=== PATIENT | female | born 1940 | race Caucasian/White ===

== ENCOUNTER 2024-02-16 16:39 | Emergency (ER) | payer MEDICARE, OTHER, SELFPAY ==
[2024-02-16 16:40] VITALS: BP 166/91
[2024-02-16 17:31] VITALS: BP 153/77
--- NOTE | 2024-02-16 17:37 | ED.GENMED ---
History of Present Illness
General
Chief Complaint: Rectal Bleeding
Time Seen by Provider: 02/16/24 17:19
History of Present Illness
History of Present Illness:
83-year-old female with history of A-fib on warfarin presents to the emergency department for evaluation of rectal bleeding. She states it would seem to be dark red blood last night but today with bright red blood. Noted bleeding regardless of
bowel movements. She denies any lightheadedness or dizziness. Last INR was 2.2. No abdominal pain or vomiting.
Past History
Past History
ED Past Medical History: Arrthythmia (Atrial fibrillation), Asthma, CHF, HTN, Hypercholesterolemia, IDDM, Renal failure (Renal insufficiency), Hypothyroidism and Other (Gastric ulcers, post herpetic neuralgia)
ED Past Surgical History: Appendectomy, Cholecystectomy and Gynecological (Total hysterectomy)
Patient has exhibited threatening behavior?: No
Social History
Tobacco: Non-smoker
Alcohol: None
Drug: None
Personal:
Living: with family
Employment: Retired
Family History
Family History: Other (Noncontributory)
Review of Systems
Review of Systems
Allergies reviewed?: Yes
All Other Systems: ROS reviewed and negative except as documented in HPI and ROS
Phy Exam
Physical Exam
Physical Exam:
GEN: Well appearing, NAD, WDWN
HEENT: Oral mucosa moist, no scleral icterus
Cardiac: Regular rate
Lung: No respiratory distress, no tachypnea
Abdomen: Soft, nontender
Rectal: No obvious evidence for bleeding, no visible hemorrhoids, no fissures
MSK: No gross deformity or injuries
Skin: Good color, no pallor or jaundice, no rashes
Neuro: AO x3, moves all extremities freely
Psych: Calm, cooperative
Course
Orders/Labs/Results
Orders:
Orders
02/16/24 17:52
Complete Blood Count/With Diff Urgent
Comprehensive Metabolic Panel Urgent
Prothrombin Time Urgent
02/16/24 18:55
Urinalysis Reflex To Culture Urgent
Date Specimen was Collected: 02/16/24
Time Specimen was Collected: 18:53
Urine Microscopic Reflex Cult Urgent
Urine Culture Urgent
DAI Source: U
Specimen Description:
Date Specimen was Collected: 02/16/24
Time Specimen was Collected: 18:53
02/16/24 19:42
CT Abd/pel Without Iv Or Oral Urgent
Comment:
Reason For Exam: R flank pain
02/16/24 20:59
Miconazole Nitrate [Monistat 7 Vaginal Cream] See Dose Instructions VAG NOW STA
Abnormal Lab Results
02/16/24 02/16/24
17:52 18:55
RBC 3.97 L 10^6/uL
(4.20-5.40)
Hgb 11.6 L g/dL
(12.0-16.0)
Hct 35.5 L %
(37.0-47.0)
MCHC 32.7 L g/dL
(33.0-37.0)
RDW 16.9 H %
(11.5-14.5)
MPV 10.6 H fL
(7.4-10.4)
Abs Immat Gran (auto) 0.1 H 10^3/uL
(0-0.05)
Absolute Neuts (auto) 6.8 H 10^3/uL
(1.4-6.5)
Absolute Monos (auto) 0.7 H 10^3/uL
(0.1-0.6)
Immature Gran % 0.7 H %
(0-0.5)
Lymphocytes % 16.9 L %
(20.5-51.1)
PT 21.2 H Sec
(11.4-14.6)
BUN 26 H mg/dl
(7-17)
Creatinine 1.1 H mg/dL
(0.6-1.0)
Glucose 146 H mg/dl
(70-99)
Ur Occult Blood Reflex 4+ A
(Negative)
Leukocyte Esterase Rfl 2+ A
(Negative)
Urine RBC >100 A /HPF
(0-2)
Urine Albumin (Reflex) 1+ A
(Neg - Trace)
02/16/24 17:52
02/16/24 17:52
Vital Signs
Initial and Last Documented VS:
Initial Vital Signs
Temp Pulse Resp BP Pulse Ox
97.9 F 85 18 166/91 97
02/16/24 16:40 02/16/24 16:40 02/16/24 16:40 02/16/24 16:40 02/16/24 16:40
Last Documented Vital Signs
Temp Pulse Resp BP Pulse Ox
97.9 F 85 18 157/80 98
02/16/24 16:40 02/16/24 16:40 02/16/24 16:40 02/16/24 21:00 02/16/24 21:00
MDM/Problems Addressed
MDM/Problems Addressed:
After initial evaluation with negative rectal exam a follow-up pelvic exam was performed, this revealed significant vaginal skin excoriations with thick white discharge and scant bleeding.. The patient complained continually of right flank pain
thus was sent for CT which showed no evidence for intra-abdominal pathology. Ultimately bleeding is not likely rectal and although she is anticoagulated there is no evidence of active bleed other than minor vaginal excoriations we will treat with
topical miconazole as the oral fluconazole will cause significant medication interactions
*Critical Care Note
Total Time (30-74mins, 75-104mins- exclusive of procedures): Not Applicable
ED Attending Note
-
Portions of this chart may have been created with voice recognition software.� Occasional wrong word or��sound alike� substitutions may have occurred due to the inherent limitations of voice recognition software.
Discharge Plan
Departure
Patient Disposition: Home (Routine Discharge)
Date of Disposition: 02/16/24
Time of Disposition: 20:52
Patient with high blood pressure during this ER visit?: No
Discharge Problem:
Candidiasis of vagina
Instructions: Vaginal Yeast Infection, Adult ED
Prescriptions:
New
miconazole nitrate [Miconazole-7] 2 % cream
1 appful vaginal HS 7 Days Qty: 45 0RF
No Action
dofetilide 250 MCG capsule
125 mcg PO Q12H
allopurinol 100 MG tablet
100 mg PO BID
simvastatin 40 MG tablet
40 mg PO HS
doxazosin 2 MG tablet
2 mg PO BID
magnesium oxide 500 MG capsule
500 mg PO DAILY
furosemide 20 MG tablet
40 mg PO BID@0800,1600
insulin asp prt-insulin aspart [Novolog Mix 70-30FlexPen U-100] 300 UNITS/3 ML insulin pen
50 units SC BID
warfarin [Jantoven] 4 MG tablet
2 mg PO HS
insulin asp prt-insulin aspart [Novolog Mix 70-30FlexPen U-100] 300 UNITS/3 ML insulin pen
25 units SC NOON
losartan 50 mg Tablet
50 mg PO DAILY
polyethylene glycol 3350 [Miralax] 17 gram Powder In Packet
17 g PO DAILYPRN PRN (Reason: constipation)
Theragen Tablet
1 tab PO DAILY
acetaminophen [Tylenol Extra Strength] 500 mg Tablet
1,000 mg PO Q6HPRN PRN (Reason: mild pain)
levothyroxine 75 mcg Tablet
75 mcg PO DAILY
gabapentin 100 mg Capsule
100 mg PO TIDPRN PRN (Reason: neuropathic pain)
albuterol sulfate 90 mcg/actuation Hfa Aerosol Inhaler
2 puff INHALATION R Q6HPRN PRN (Reason: sob)
Mounjaro 7.5 mg/0.5 mL Pen Injector
7.5 mg SC TH
Referrals:
Tonio Garduno PA-C [Family Provider] -
Interventions
Interventions:
*Risk Screen - Suicide Last Done: 02/16/24 16:40
*General Assessment Last Done: 02/16/24 16:40
*Neglect/Abuse Screening Last Done: 02/16/24 16:40
ED- Fall Risk Assessment Last Done: 02/16/24 22:00
*ED COVID-19 Vaccine History Last Done: 02/16/24 16:40
*Nursing Disposition Last Done: 02/16/24 22:00
XA-Hoznre-Aefjonhqyx Assessment Last Done: 02/16/24 17:55
ED- Cardiac Assessment Last Done: 02/16/24 17:55
ED- Pulmonary Assessment Last Done: 02/16/24 17:55
Discharge Date and Time
Discharge Date/Time: 02/16/24 22:01
Print Language: CITIZEN OF [place]
[2024-02-16 17:55] VITALS: BMI 41.6
[2024-02-16 18:00] VITALS: BP 138/62
[2024-02-16 18:02] LABS: % Basophils 0.4 % (0-2); % Eosinophils 2.1 % (0-6); % Immature Granulocytes 0.7 % (0-0.5); % Lymphocytes 16.9 % (20.5-51.1); % Monocytes 7.7 % (1.7-9.3); % Neutrophils 72.2 % (42.2-75.2); Absolute Eosinophils 0.2 10^3/uL (0-0.7); Absolute Immature Granulocytes 0.1 10^3/uL (0-0.05); Absolute Lymphocytes 1.6 10^3/uL (1.2-3.4); Absolute Monocytes 0.7 10^3/uL (0.1-0.6); Absolute Neutrophils 6.8 10^3/uL (1.4-6.5); Hematocrit 35.5 % (37.0-47.0); Hemoglobin 11.6 g/dL (12.0-16.0); Mean Corp Hgb Conc. 32.7 g/dL (33.0-37.0); Mean Corpuscular Hgb 29.2 pg (27.0-31.0); Mean Corpuscular Volume 89.4 fL (81.0-99.0); Mean Platelet Volume 10.6 fL (7.4-10.4); Nucleated Red Blood Cells % 0 %; Platelet Count 166 10^3/uL (130-400); Red Blood Cell Count 3.97 10^6/uL (4.20-5.40); Red Cell Dist. Width 16.9 % (11.5-14.5); White Blood Cell Count 9.5 10^3/uL (4.8-10.8)
[2024-02-16 18:09] LABS: INR 1.78; PT 21.2 Sec (11.4-14.6)
[2024-02-16 18:19] LABS: ALT (SGPT) 21 U/L (0-35); AST (SGOT) 28 U/L (14-36); Albumin 4.2 g/dl (3.5-5.0); Alkaline Phosphatase 64 U/L (38-126); Blood Urea Nitrogen 26 mg/dl (7-17); Calcium 9.5 mg/dl (8.4-10.2); Carbon Dioxide 25 mmol/L (22-30); Chloride 104 mmol/L (98-107); Estimated Creatinine Clearance 43 ml/min; Glucose 146 mg/dl (70-99); Potassium 3.8 mmol/L (3.5-5.1); Sodium 143 mmol/L (135-145); Total Bilirubin 0.6 mg/dl (0.2-1.3); Total Protein 6.7 g/dl (6.3-8.2); eGFR 49.55
[2024-02-16 19:25] LABS: Urine Albumin 1+ (Neg - Trace); Urine Bilirubin Negative (Negative); Urine Character Slightly Cloudy (Clear); Urine Color Red; Urine Glucose Negative (Negative); Urine Ketone Negative (Negative); Urine Leukocyte 2+ (Negative); Urine Nitrite Negative (Negative); Urine Occult Blood 4+ (Negative); Urine Specific Gravity 1.015 (<1.030); Urine Urobilinogen Negative (Neg - 1+)
[2024-02-16 19:51] LABS: Urine Red Blood Cell >100 /HPF (0-2)
[2024-02-16 20:17] VITALS: BP 176/94
[2024-02-16 21:00] VITALS: BP 157/80
[2024-02-16] MEDS: MONISTAT 7 VAGINAL CREAM 1 APPLIC VAG (21:12)
== END 2024-02-16 22:01 | disposition home or self-care (01) ==
LOC: EMR 16:39
PROVIDERS: Physician Assistant; EMERGENCY PHYSICIAN Student in an Organized Health Care Education/Training Program; FAMILY PHYSICIAN Physician Assistant Medical
DX: B37.31 Acute candidiasis of vulva and vagina (principal); I11.0 Hypertensive heart disease with heart failure; I50.9 Heart failure, unspecified; E03.9 Hypothyroidism, unspecified; E11.9 Type 2 diabetes mellitus without complications; E78.00 Pure hypercholesterolemia, unspecified; Z79.01 Long term (current) use of anticoagulants; Z87.11 Personal history of peptic ulcer disease; Z90.49 Acquired absence of other specified parts of digestive tract; Z79.4 Long term (current) use of insulin
CPT/HCPCS: 99284; 74176; 80053; 81003; 81015; 85025; 85610; 87086

== ENCOUNTER 2024-10-10 09:57 | Day surgery (SDC) | payer MEDICARE, OTHER, SELFPAY ==
[2024-10-10 12:17] LABS: INR 1.66; PT 20.1 Sec (11.4-14.6)
[2024-10-10 12:37] LABS: Glucose - Point of Care 125 mg/dl (70-99)
== END 2024-10-10 13:23 | disposition home or self-care (01) ==
LOC: CATH 09:57
PROVIDERS: ATTENDING PHYSICIAN Internal Medicine Cardiovascular Disease; REFERRING PHYSICIAN Student in an Organized Health Care Education/Training Program
DX: I48.19 Other persistent atrial fibrillation (principal); Z53.09 Procedure and treatment not carried out because of other contraindication; I11.0 Hypertensive heart disease with heart failure; I50.32 Chronic diastolic (congestive) heart failure; E03.9 Hypothyroidism, unspecified; E78.5 Hyperlipidemia, unspecified; E11.65 Type 2 diabetes mellitus with hyperglycemia; I25.10 Atherosclerotic heart disease of native coronary artery without angina pectoris; Z79.85 Long-term (current) use of injectable non-insulin antidiabetic drugs; Z79.01 Long term (current) use of anticoagulants; Z79.4 Long term (current) use of insulin
CPT/HCPCS: 85610; 82962

== ENCOUNTER → 2024-10-12 11:39 | Outpatient (REF) | payer MEDICARE, OTHER, SELFPAY ==
[2024-10-12 13:24] LABS: INR 2.01; PT 23.0 Sec (11.4-14.6)
== END ==
LOC: REG 11:39
PROVIDERS: ATTENDING PHYSICIAN Student in an Organized Health Care Education/Training Program; FAMILY PHYSICIAN Family Medicine
DX: I48.0 Paroxysmal atrial fibrillation (principal)
CPT/HCPCS: 36415; 85610

== ENCOUNTER → 2024-10-16 08:41 | Outpatient (REF) | payer MEDICARE, OTHER, SELFPAY ==
[2024-10-16 10:22] LABS: INR 2.08; PT 23.5 Sec (11.4-14.6)
== END ==
LOC: REG 08:41
PROVIDERS: ATTENDING PHYSICIAN Student in an Organized Health Care Education/Training Program; FAMILY PHYSICIAN Physician Assistant Medical
DX: I48.0 Paroxysmal atrial fibrillation (principal)
CPT/HCPCS: 36415; 85610

== ENCOUNTER → 2024-11-09 13:09 | Outpatient (REF) | payer MEDICARE, OTHER, SELFPAY | LOC: SDSPAT 13:09 | PROVIDERS: ATTENDING PHYSICIAN Internal Medicine Cardiovascular Disease; FAMILY PHYSICIAN Physician Assistant Medical; OTHER PHYSICIAN Student in an Organized Health Care Education/Training Program | DX: I48.19 Other persistent atrial fibrillation (principal) | CPT/HCPCS: 93005 ==

== ENCOUNTER 2024-11-14 06:33 | Day surgery (SDC) | payer MEDICARE, OTHER, SELFPAY ==
[2024-11-09 13:16] VITALS: BMI 38.7
[2024-11-14 07:56] LABS: Glucose - Point of Care 142 mg/dl (70-99)
[2024-11-14 08:04] LABS: INR 1.62; PT 19.8 Sec (11.4-14.6)
== END 2024-11-14 08:30 | disposition home or self-care (01) ==
LOC: CATH 06:33
PROVIDERS: ATTENDING PHYSICIAN Internal Medicine Cardiovascular Disease; FAMILY PHYSICIAN Physician Assistant Medical; OTHER PHYSICIAN Student in an Organized Health Care Education/Training Program
DX: I48.19 Other persistent atrial fibrillation (principal); Z53.09 Procedure and treatment not carried out because of other contraindication; I13.0 Hypertensive heart and chronic kidney disease with heart failure and stage 1 through stage 4 chronic kidney disease, or unspecified chronic kidney disease; E11.22 Type 2 diabetes mellitus with diabetic chronic kidney disease; I50.32 Chronic diastolic (congestive) heart failure; N18.30 Chronic kidney disease, stage 3 unspecified; I25.10 Atherosclerotic heart disease of native coronary artery without angina pectoris; E78.5 Hyperlipidemia, unspecified; J45.909 Unspecified asthma, uncomplicated; G47.33 Obstructive sleep apnea (adult) (pediatric); E03.9 Hypothyroidism, unspecified; E66.9 Obesity, unspecified; Z68.38 Body mass index [BMI] 38.0-38.9, adult; I87.2 Venous insufficiency (chronic) (peripheral); M10.9 Gout, unspecified; Z79.01 Long term (current) use of anticoagulants; Z79.4 Long term (current) use of insulin
CPT/HCPCS: 85610; 82962

== ENCOUNTER → 2024-12-05 06:31 | Day surgery (SDC) | payer MEDICARE, OTHER, SELFPAY ==
[2024-12-05 07:42] LABS: Glucose - Point of Care 171 mg/dl (70-99)
== END ==
LOC: CATH 06:31
PROVIDERS: ATTENDING PHYSICIAN Internal Medicine Cardiovascular Disease; FAMILY PHYSICIAN Physician Assistant Medical; OTHER PHYSICIAN Student in an Organized Health Care Education/Training Program
DX: I48.19 Other persistent atrial fibrillation (principal); Z53.09 Procedure and treatment not carried out because of other contraindication; E78.5 Hyperlipidemia, unspecified; I25.10 Atherosclerotic heart disease of native coronary artery without angina pectoris; I11.0 Hypertensive heart disease with heart failure; I50.32 Chronic diastolic (congestive) heart failure; E11.9 Type 2 diabetes mellitus without complications; Z79.4 Long term (current) use of insulin
CPT/HCPCS: 93005; 82962

== ENCOUNTER 2024-12-28 09:30 | Day surgery (SDC) | payer MEDICARE, OTHER, SELFPAY ==
--- NOTE | 2024-12-28 11:05 | ITS.CL.CARDI ---
Animal Nurse - Cardioversion
Cardioversion
Procedure Report:
Date of Procedure: 12/28/24
Procedure: Cardioversion.
Indication: Symptomatic persistent atrial fibrillation.
Performing Physician: Roselia Johnson MD
Technique: The patient was brought to the holding area. Signed informed consent was obtained. A time out was called and performed. The patient was sedated by a member of the anesthesia service. Anticoagulation status was reviewed and was
appropriate. R-2 pads were placed anteriorly and posteriorly. A 200 J followed by 300J synchronized biphasic shock restored normal sinus rhythm without significant bradycardia. There were no complications.
Conclusion: Uncomplicated cardioversion from atrial fibrillation to sinus rhythm.
Recommendation: Routine post cardioversion care. Continue terminal press operator anticoagulation.
cc: Hugh
== END 2024-12-28 11:15 | disposition home or self-care (01) ==
LOC: CATH 09:30
PROVIDERS: ATTENDING PHYSICIAN Internal Medicine Cardiovascular Disease; FAMILY PHYSICIAN Physician Assistant Medical; OTHER PHYSICIAN Student in an Organized Health Care Education/Training Program
DX: I48.19 Other persistent atrial fibrillation (principal)
CPT/HCPCS: 92960; 93005

== ENCOUNTER → 2025-01-17 12:49 | Outpatient (REF) | payer MEDICARE, OTHER, SELFPAY | LOC: RCS 12:49 | PROVIDERS: ATTENDING PHYSICIAN Student in an Organized Health Care Education/Training Program; FAMILY PHYSICIAN Physician Assistant Medical | DX: R06.00 Dyspnea, unspecified (principal) | CPT/HCPCS: 93306 ==

== ENCOUNTER → 2025-01-18 07:20 | Outpatient (REF) | payer MEDICARE, OTHER, SELFPAY | LOC: HWRCS 07:20 | PROVIDERS: ATTENDING PHYSICIAN Student in an Organized Health Care Education/Training Program; FAMILY PHYSICIAN Physician Assistant Medical | DX: R06.00 Dyspnea, unspecified (principal); R94.31 Abnormal electrocardiogram [ECG] [EKG] | CPT/HCPCS: 78452; 93017; A9500; J2785 ==

== ENCOUNTER 2025-01-24 23:05 | Emergency (ER) | payer MEDICARE, OTHER, SELFPAY ==
[2025-01-24 23:07] VITALS: BP 183/99
[2025-01-25 00:08] VITALS: BMI 87.5
[2025-01-25 00:42] LABS: Hematocrit 37.9 % (37.0-47.0); Hemoglobin 12.4 g/dL (12.0-16.0); Mean Corp Hgb Conc. 32.7 g/dL (33.0-37.0); Mean Corpuscular Volume 90.0 fL (81.0-99.0); Platelet Count 183 10^3/uL (130-400); Red Cell Dist. Width 15.4 % (11.5-14.5)
[2025-01-25] MEDS: DECADRON 10 MG IV (01:13)
[2025-01-25] MEDS: DILAUDID 0.5 MG IV ×2 (01:13→03:03)
[2025-01-25] MEDS: TYLENOL 650 MG PO (01:15)
[2025-01-25 01:35] LABS: Blood Urea Nitrogen 23 mg/dl (7-17); Calcium 7.7 mg/dl (8.4-10.2); Carbon Dioxide 23 mmol/L (22-30); Chloride 112 mmol/L (98-107); Estimated Creatinine Clearance 73 ml/min; Glucose 104 mg/dl (70-99); Sodium 140 mmol/L (135-145); eGFR 55.21
[2025-01-25 01:48] LABS: C-Reactive Protein 24.30 mg/L (0.0-10.00)
[2025-01-25 02:00] VITALS: BP 172/80
--- NOTE | 2025-01-25 02:56 | ED.GENMED ---
History of Present Illness
General
Chief Complaint: Musculo-Skeletal Complaint
Source: patient and family
Exam Limitations: none
Time Seen by Provider: 01/24/25 23:57
Nursing documentation reviewed up to this point in time: agreed with
History of Present Illness
History of Present Illness:
Patient presents to ED secondary to worsening neck pain over the past 3 days. Denies direct trauma. Denies headache. Denies dizziness. Denies nausea or vomiting. Denies loss of sensation or weakness. Denies previous history of similar
symptoms. Patient was able to take Tylenol at onset of her symptoms with improvement symptoms, until tonight. Patient states that she has been playing a lot of video games on her iPad, which may have started her symptoms.
Past History
Past History
ED Past Medical History: Arrthythmia (Atrial fibrillation), Asthma, CHF, HTN, Hypercholesterolemia, IDDM, Renal failure (Renal insufficiency), Hypothyroidism and Other (Gastric ulcers, post herpetic neuralgia)
ED Past Surgical History: Appendectomy, Cholecystectomy and Gynecological (Total hysterectomy)
Patient has exhibited threatening behavior?: No
Social History
Tobacco: Non-smoker
Alcohol: None
Drug: None
Personal:
Living: with family
Employment: Retired
Family History
Family History: Other (Noncontributory)
Review of Systems
Review of Systems
Allergies reviewed?: Yes
All Other Systems: ROS reviewed and negative except as documented in HPI and ROS
Constitutional: Reports no symptoms
ABD/GI: Reports no symptoms; Denies nausea or vomiting
Musculoskeletal: Reports neck pain
Skin: Reports no symptoms
Neurological: Reports no symptoms; Denies dizzy, headache, weakness or numbness
Phy Exam
Physical Exam
Physical Exam:
Physical Exam
General: mild painful distress, not acutely ill. afebrile
Head: nc/at. eomi
Neck: supple. no midline tenderness. mild diffuse tenderness at base of neck. limited ROM due to pain
Heart: s1/s2 regular rate and rhythm, no murmur.
Lungs: no acute respiratory distress. clear bilaterally
Abdomen: normal bowel sounds. not tender.
Neuro: alert and oriented x 3. no focal neurological deficits
Skin: no rash
Psychiatric: well kept. interactive and cooperative
Extremities: no edema. no calf tenderness.
Course
Orders/Labs/Results
Orders:
Orders
01/25/25 00:19
CT Head & Neck Angio W/wo IV Urgent
Comment:
Reason For Exam: headache/neck pain
01/25/25 00:20
Dexamethasone Sod Phosphate [Decadron] 10 mg IV NOW STA
01/25/25 00:21
Acetaminophen [Tylenol] 650 mg PO NOW STA
HYDROmorphone [Dilaudid] 0.5 mg IV NOW STA
01/25/25 00:24
Complete Blood Count/No Diff Urgent
01/25/25 01:09
Basic Metabolic Panel Urgent
Comment: REDRAW/NO K
C-Reactive Protein Urgent
01/25/25 02:59
HYDROmorphone [Dilaudid] 0.5 mg IV NOW STA
01/25/25 03:40
Calcium Carbonate [Oscal Mehul 500] 500 mg PO NOW STA
Abnormal Lab Results
01/25/25 01/25/25
00:24 01:09
MCHC 32.7 L g/dL
(33.0-37.0)
RDW 15.4 H %
(11.5-14.5)
Chloride 112 H mmol/L
(98-107)
BUN 23 H mg/dl
(7-17)
Glucose 104 H mg/dl
(70-99)
Calcium 7.7 L mg/dl
(8.4-10.2)
C-Reactive Protein 24.30 H mg/L
(0.0-10.00)
01/25/25 00:24
01/25/25 01:09
Vital Signs
Initial and Last Documented VS:
Initial Vital Signs
Temp Pulse Resp BP Pulse Ox
97.7 F 80 26 183/99 99
01/24/25 23:07 01/24/25 23:07 01/24/25 23:07 01/24/25 23:07 01/24/25 23:07
Last Documented Vital Signs
Temp Pulse Resp BP Pulse Ox
97.7 F 80 20 172/80 95
01/24/25 23:07 01/25/25 04:51 01/25/25 04:51 01/25/25 04:51 01/25/25 04:51
MDM/Problems Addressed
MDM/Problems Addressed:
History and exam consistent with likely musculoskeletal neck pain, without any focal neurological deficit. Patient reports mild improvement symptoms after treatment. Hypocalcemia noted, for which she was given calcium tablet. In reviewing
patient's blood work in the past, patient has had an episode of hypocalcemia, which patient is not aware of. As such, patient will be advised to make dietary changes along with calcium supplementation outpatient, along with repeat blood work with
PCP in 2 to 3 weeks.
*Pulse Oximetry
SaO2: 99
Oxygen Mode of Delivery: Room air
Patient hypoxic: no
*Critical Care Note
Total Time (30-74mins, 75-104mins- exclusive of procedures): Not Applicable
ED Attending Note
-
Portions of this chart may have been created with voice recognition software.� Occasional wrong word or��sound alike� substitutions may have occurred due to the inherent limitations of voice recognition software.
Discharge Plan
Departure
Patient Disposition: Home (Routine Discharge)
Date of Disposition: 01/25/25
Time of Disposition: 03:24
Patient with high blood pressure during this ER visit?: Yes
Condition: Fair
Discharge Problem:
Neck pain, Hypocalcemia
Instructions: Hypocalcemia, Neck pain - ED (DC)
Prescriptions:
New
oxycodone-acetaminophen [Percocet] 5-325 mg Tablet
1 tab PO Q6HPRN PRN (Reason: pain) Qty: 10 0RF
dexamethasone 2 mg tablet
10 mg PO DAILY 1 Days Qty: 5 0RF
No Action
allopurinol 100 MG tablet
100 mg PO BID
simvastatin 40 MG tablet
40 mg PO HS
doxazosin 2 MG tablet
2 mg PO BID
insulin asp prt-insulin aspart [Novolog Mix 70-30FlexPen U-100] 300 UNITS/3 ML insulin pen
0 units SC TID
Patient Comments:
sliding scale
losartan 50 mg Tablet
50 mg PO DAILY
Theragen Tablet
1 tab PO DAILY
acetaminophen [Tylenol Extra Strength] 500 mg Tablet
1,000 mg PO Q6HPRN PRN (Reason: mild pain)
gabapentin 100 mg Capsule
100 mg PO BIDPRN PRN (Reason: neuropathic pain)
Mounjaro 10 mg/0.5 mL Pen Injector
10 mg SC TH
furosemide 40 mg tablet
40 mg PO BID
dofetilide [Tikosyn] 125 mcg Capsule
125 mcg PO Q12H
levothyroxine 50 mcg Tablet
50 mcg PO DAILY
magnesium 250 mg Tablet
500 mg PO DAILY
Xarelto 20 mg Tablet
20 mg PO QPM
Referrals:
Tonio Garduno PA-C [Family Provider]
Activity Restrictions/Additional Instructions:
As discussed, please follow-up with your primary care physician for reevaluation, including repeat blood work in 2 to 3 weeks, as your calcium level was noted to be low. [facility]
[place].
Interventions
Interventions:
*Risk Screen - Suicide Last Done: 01/24/25 23:07
*General Assessment Last Done: 01/24/25 23:07
*Neglect/Abuse Screening Last Done: 01/24/25 23:07
*ED- Fall Risk Assessment Last Done: 01/24/25 23:07
*ED COVID-19 Vaccine History Last Done: 01/24/25 23:07
*ED Influenza Vaccine History Last Done: 01/24/25 23:07
*Nursing Disposition Last Done: 01/25/25 04:51
ED-Musculoskeletal Assessment Last Done: 01/25/25 00:08
Discharge Date and Time
Discharge Date/Time: 01/25/25 04:35
Print Language: [place]
[2025-01-25] MEDS: OSCAL CAL 500 500 MG PO (04:08)
[2025-01-25 04:51] VITALS: BP 172/80
== END 2025-01-25 04:35 | disposition home or self-care (01) ==
LOC: EMR 23:05
PROVIDERS: EMERGENCY PHYSICIAN Emergency Medicine; FAMILY PHYSICIAN Physician Assistant Medical
DX: M54.2 Cervicalgia (principal); E83.51 Hypocalcemia; E10.22 Type 1 diabetes mellitus with diabetic chronic kidney disease; N18.9 Chronic kidney disease, unspecified; I48.91 Unspecified atrial fibrillation; I11.0 Hypertensive heart disease with heart failure; I50.9 Heart failure, unspecified; E78.00 Pure hypercholesterolemia, unspecified; E03.9 Hypothyroidism, unspecified; J45.909 Unspecified asthma, uncomplicated; Z79.4 Long term (current) use of insulin; Z79.85 Long-term (current) use of injectable non-insulin antidiabetic drugs; Z79.01 Long term (current) use of anticoagulants
CPT/HCPCS: 99284; 96374; 96375; 96376; 70496; 70498; 80048; 85027; 86140; Q9967

== ENCOUNTER → 2025-03-05 16:29 | Outpatient (REF) | payer MEDICARE, OTHER, SELFPAY | LOC: RAD 16:29 | PROVIDERS: ATTENDING PHYSICIAN Physician Assistant Medical | DX: R10.31 Right lower quadrant pain (principal); R19.4 Change in bowel habit | CPT/HCPCS: 74176 ==